=== PATIENT | female | born 1990 | race Caucasian/White ===

== ENCOUNTER 2018-08-01 13:50 | Outpatient (CLI) | payer OTHER ==
[2018-08-01 15:22] VITALS: BP 132/80; PULSE 100; RESP 16; TEMP 97.2
--- NOTE | 2018-08-01 17:26 | P.MSEPDOC ---
Presenting Problems - Arrival Data Date of Arrival on Unit: 08/01/18 Time of Arrival on Unit: 13:50 Mode of Transport: Ambulatory - Complaint OB-Reason for Admission/Chief Complaint: Possible Onset of Labor Comment: Contractions since last evening, q3-4minutes apart since 1300 Medical History - Information : 1 Para: 0 Term: 0 : 0 Abortions: Spontaneous or Elective: 0 Number of Living Children: 0 - Gestational Age Gestational Age by VENANCIO (wks/days): 38 Weeks and 1 Days Review of Systems - Review of Systems Constitutional: No problems Breast: No problems ENT: No problems Cardiovascular: No problems Respiratory: No problems Gastrointestinal: No problems Genitourinary: No problems Musculoskeletal: No problems Neurological: No problems Skin: No problems Vital Signs - Temperature Temperature: 97.2 F Temperature Source: Temporal Artery Scan - Pulse Right Sitting Brachial Pulse Rate: 100 Pulse Assessment Method: Automatic Cuff - Respirations Respiratory Rate: 16 Oxygen Delivery Method: Room Air O2 Sat by Pulse Oximetry: 98 - Blood Pressure Right Arm Sitting Blood Pressure: 132/80 Blood Pressure Mean: 97 Blood Pressure Source: Automatic Cuff Medical Screen Scoring (Pre) - Cervical Exam Dilation: 1-3 cm = 1 Effacement: More than 50% = 2 Membranes: Intact - Uterine Contractions Frequency: > or = 36 weeks =2 Duration: > 40 seconds = 2 Intensity: N/A - Maternal Vital Signs Maternal Temperature: N/A Maternal Blood Pressure: N/A Signs of Preeclampsia: N/A Maternal Respirations: N/A - Maternal Trauma Maternal Trauma: N/A - Assessment Baseline FHR: 135 Heart Rate - NICHD Category: Category I (Normal) = 0 NST: Reactive Position: N/A Station: N/A - Total Score Total Score (Pre): 7 - Level of Risk Level of Risk: Medium (6-9) Physician Notification (Pre) - Physician Notified Physician Notified Date: 08/01/18 Physician Notified Time: 15:05 Spoke With: Dr. Dubon New Order Received: Yes - Notification Comment Comment: Spk c\Dr. Dubon, advsd , 38 10/13, contractions q3-4 minutes apart, 3/-1, no change after 1 hour. NST reactive. States to d/c home with instructions. Disposition - Disposition OB Disposition: Discharge to home, Written follow up instructions reviewed Discharge Date: 08/01/18 Discharge Time: 15:10 I agree with the RN Medical Screening Exam: Yes Risk & Benefit of care provided described in d/c instruction: Yes Diagnosis: FALSE LABOR AT OR AFTER 37 COMPLETED WEEKS OF GESTATION (Patient was evaluated and discharge by Dr. Dubon.)
== END 2018-08-01 15:10 | disposition home or self-care (01) ==
LOC: FBPOP 13:50
PROVIDERS: ATTEND Obstetrics & Gynecology
DX: O47.1 False labor at or after 37 completed weeks of gestation (principal); Z3A.38 38 weeks gestation of pregnancy
CPT/HCPCS: 59025; G0463; 99213

== ENCOUNTER 2018-08-01 21:00 | Inpatient (IN) | payer OTHER ==
[2018-08-01] MEDS ORDERED: LIDOCAINE 0.5% (PF) 5 MG/ML (50 ML SDV) SQ PRN (21:26)
[2018-08-01] MEDS ORDERED: CARBOPROST TROMETHAMINE 250 MCG/ML 1 ML AMP IM PRN (21:26)
[2018-08-01] MEDS ORDERED: TERBUTALINE 1 MG/ML VIAL SQ PRN (21:26)
[2018-08-01] MEDS ORDERED: METHYLERGONOVINE 0.2 MG/ML 1 ML AMP IM PRN (21:26)
[2018-08-01] MEDS ORDERED: OXYTOCIN 10 UNIT/ML 1 ML VIAL IM PRN (21:26)
[2018-08-01] MEDS ORDERED: LACTATED RINGERS 1,000 ML IV SCH (21:30)
[2018-08-01] MEDS ORDERED: OXYTOCIN 20 UNITS/1000 ML NS 1,000 ML IV SCH ×2 (21:30→22:30)
[2018-08-01 22:01] LABS: Basophils % (A) 0 %; Eosinophils # (A) 0.3 k/uL (0-0.7); Eosinophils % (A) 1 %; HCT 36.3 % (34.0-46.0); HGB 12.2 gm/dL (11.4-16.0); Lymphocytes # (A) 2.6 k/uL (1.0-4.8); Lymphocytes % (A) 13 %; MCH 32.3 pg (25.0-35.0); MCHC 33.7 g/dL (31.0-37.0); MCV 95.8 fL (80.0-100.0); Mean Platelet Volume 7.7; Monocytes # (A) 0.8 k/uL (0-1.0); Monocytes % (A) 4 %; Neutrophils # (A) 15.9 k/uL (1.3-7.7); Neutrophils % (A) 81 %; Platelet Count 240 k/uL (150-450); RBC 3.79 m/uL (3.80-5.40); RDW 13.3 % (11.5-15.5); WBC 19.8 k/uL (3.8-10.6)
[2018-08-01] MEDS ORDERED: ACETAMINOPHEN TAB 325 MG TAB PO PRN (22:29)
[2018-08-01] MEDS ORDERED: HYDROCORTISONE 2.5% RECTAL CREAM 30 GM TUBE RECTAL PRN (22:29)
[2018-08-01] MEDS ORDERED: SIMETHICONE 80 MG CHEWABLE PO PRN (22:29)
[2018-08-01] MEDS ORDERED: BISACODYL 10 MG SUPP RECTAL PRN (22:29)
[2018-08-01] MEDS ORDERED: WITCH HAZEL 1 EACH MED..PAD TOPICAL PRN (22:29)
[2018-08-01] MEDS ORDERED: BENZOCAINE/MENTHOL SPRAY 1 GM/SPRAY AEROSOL TOPICAL PRN (22:29)
[2018-08-01] MEDS ORDERED: diphenhydrAMINE 50 MG/ML 1 ML VIAL IVP PRN (22:29)
[2018-08-01] MEDS ORDERED: Rhogam IMMUNE GLOBULIN 1,500 UNIT/1 ML IM ONE (22:29)
[2018-08-01] MEDS ORDERED: ZOLPIDEM 5 MG TAB PO PRN (22:29)
[2018-08-01] MEDS ORDERED: diphenhydrAMINE 25 MG CAP PO PRN (22:29)
[2018-08-01] MEDS ORDERED: LANOLIN CREAM 5 GM TUBE TOPICAL PRN (22:29)
--- NOTE | 2018-08-01 22:36 | P.HPOB ---
History of Present Illness H&P Date: 08/01/18 Chief Complaint: Contractions This patient is a pleasant 28-year-old 1 para 0 female estimated date of confinement 08/14/2018 estimated gestational age 38 weeks and 1 day who was seen in the office earlier today was 3 cm dilated and having contractions returns this evening with stronger contractions and a gush of fluid that happened earlier this evening. Patient's admission is 3 cm dilated and very uncomfortable. care is per Dr. Dubon. appears to be uncomplicated with the exception of tobacco use. Review of Systems Gastrointestinal: Reports heartburn Genitourinary: Reports Menstruation: Reports amenorrhea Past Medical History Past Medical History: No Reported History History of Any Multi-Drug Resistant Organisms: None Reported Past Surgical History: Cholecystectomy Past Anesthesia/Blood Transfusion Reactions: No Reported Reaction Past Psychological History: No Psychological Hx Reported Smoking Status: Former smoker Past Alcohol Use History: None Reported Past Drug Use History: None Reported Medications and Allergies Home Medications Medication Instructions Recorded Confirmed Type Pnv No.95/Ferrous Fum/Folic AC 1 each PO DAILY 08/01/18 08/01/18 History [ Multivitamin Tablet] Allergies Allergy/AdvReac Type Severity Reaction Status Date / Time Penicillins AdvReac Rash/Hives Verified 08/01/18 14:03 Exam Vital Signs Temp Pulse Resp BP 08/01/18 21:20 96.1 F L 85 16 131/78 Intake and Output 08/01/18 08/01/18 08/01/18 06:59 14:59 22:59 Other: Weight 85.275 kg - OBG Physical Exam Abdomen: bowel sounds normal, no diffuse tenderness, no bruit present, no guarding noted, no hepatomegaly, no splenomegaly, no mass Vulva: both: normal Vagina: normal moisture, no discharge Cervix: no lesion, no discharge Uterus: enlarged Adnexa: both: normal Results blood work shows she is Rh-. Patient did receive RhoGAM. Result Diagrams: 08/01/18 21:51 Abnormal Lab Results - Last 24 Hours (Table) 08/01/18 Range/Units 21:51 WBC 19.8 H (3.8-10.6) k/uL RBC 3.79 L (3.80-5.40) m/uL Neutrophils # 15.9 H (1.3-7.7) k/uL Assessment and Plan Assessment: This is a pleasant 28-year-old 1 para 0 female 38 and one sevenths weeks gestation with active labor and spontaneous rupture membranes. Plan is anticipate vaginal delivery. (1) Third trimester Current Visit: Yes Status: Acute Code(s): Z34.93 - ENCNTR FOR SUPRVSN OF NORMAL PREG, UNSP, THIRD TRIMESTER SNOMED Code(s): 47192690 (2) Normal labor and delivery Current Visit: Yes Status: Acute Code(s): O80 - ENCOUNTER FOR FULL-TERM UNCOMPLICATED DELIVERY SNOMED Code(s): 76587893
[2018-08-01 22:39] VITALS: BMI 33.3
--- NOTE | 2018-08-01 22:39 | P.PROBDLV ---
Vaginal Delivery Note - . Vaginal Delivery Note: Normal spontaneous vaginal delivery viable female Apgars 8 and 9 delivery time is 2209 hrs. Please see dictated H&P for intimate details of this patient's admission. Brief summary this pleasant 28-year-old 1 para 0 female 38 and one sevenths weeks gestation admitted to labor and delivery in active labor and spontaneous rupture membranes. Patient is 3 on admission and quickly goes to complete. Patient is unable to get anything for pain control because of this beautiful her labor. Patient does get the head to the perineum with approximately 3 pushes. Posterior perineum is supported and we have controlled delivery of 's head over the intact perineum. Mouth and nares are bulb suctioned. There is no evidence of a nuchal cord. With gentle downward traction we then have deliver the anterior and posterior shoulder and rest of this 's body. This is a vigorous viable female infant Apgars are 8 and 9 delivery time is 2209 hrs. After delivery of the infant the umbilical cord is allowed to continue pulsating and then after done, it is clamped and cut. It appears to be trivascular. Placenta is spontaneously delivered intact. Inspection of perineum shows a first-degree right vaginal laceration. There is bilateral superficial periurethral lacerations. I repair the first-degree laceration with a 3-0 Vicryl in the usual fashion excellent reapproximation is noted. Infant and mother stable delivery room. All counts are correct 3. There are no complications.
[2018-08-01] MEDS: IBUPROFEN 600 MG TAB PO PRN (23:19)
--- NOTE | 2018-08-02 07:12 | P.PNOBGVD ---
Subjective - Subjective Patient reports: Reports appetite normal, Reports voiding normally, Reports pain well controlled, Reports ambulating normally : doing well Objective - Latest Vital Signs Latest vital signs: Vital Signs Temp Pulse Resp BP Pulse Ox 08/02/18 04:00 98 F 71 16 124/76 08/02/18 00:21 77 16 112/57 08/01/18 23:51 85 16 124/64 08/01/18 23:21 80 16 117/61 08/01/18 23:06 71 16 114/61 08/01/18 22:51 78 16 117/57 08/01/18 22:36 82 16 116/61 100 08/01/18 22:21 96.7 F L 84 16 119/59 100 08/01/18 21:25 96.1 F L 85 16 131/78 100 08/01/18 21:20 96.1 F L 85 16 131/78 Intake and Output 08/01/18 08/02/18 08/02/18 22:59 06:59 14:59 Other: # Voids 1 1 Weight 85.275 kg - Exam Lungs: bilateral: normal Chest: Normal S1, Normal S2 Extremities: Present: normal Abdomen: Present: normal appearance, soft Uterus: Present: normal, firm - Labs Labs: Abnormal Lab Results - Last 24 Hours (Table) 08/01/18 Range/Units 21:51 WBC 19.8 H (3.8-10.6) k/uL RBC 3.79 L (3.80-5.40) m/uL Neutrophils # 15.9 H (1.3-7.7) k/uL Assessment and Plan Assessment: day #1. Patient is resting without complaints. Vital signs are stable and she is afebrile. Uterus is firm nontender she's having normal lochia. My impression this is a normal course. Plan is to continue routine care discharge home tomorrow (1) Third trimester Current Visit: Yes Status: Acute Code(s): Z34.93 - ENCNTR FOR SUPRVSN OF NORMAL PREG, UNSP, THIRD TRIMESTER SNOMED Code(s): 53291090 (2) Normal labor and delivery Current Visit: Yes Status: Acute Code(s): O80 - ENCOUNTER FOR FULL-TERM UNCOMPLICATED DELIVERY SNOMED Code(s): 82723809
[2018-08-02] MEDS: SENNOSIDES-DOCUSATE SODIUM 1 EACH TAB PO SCH ×2 (08:00→21:05)
[2018-08-02] MEDS: IBUPROFEN 600 MG TAB PO PRN (17:03)
[2018-08-03 01:22] VITALS: PULSE 69
--- NOTE | 2018-08-03 06:52 | P.PNOBGVD ---
Subjective - Subjective Patient reports: Reports appetite normal, Reports voiding normally, Reports pain well controlled, Reports ambulating normally : doing well Objective - Latest Vital Signs Latest vital signs: Vital Signs Temp Pulse Resp BP 08/03/18 00:00 98.2 F 69 14 123/69 08/02/18 16:00 98.4 F 76 18 126/78 08/02/18 08:00 97.7 F 75 18 124/74 - Exam Lungs: bilateral: normal Chest: Normal S1, Normal S2 Extremities: Present: normal Abdomen: Present: normal appearance, soft Uterus: Present: normal, firm Assessment and Plan Assessment: day #2. Patient is resting without complaints wishes to go home. Vital signs are stable and she is afebrile. Uterus is firm nontender and she is having normal lochia. My impression this is a normal course. Plan is to continue routine care discharge home later today. (1) Third trimester Current Visit: Yes Status: Acute Code(s): Z34.93 - ENCNTR FOR SUPRVSN OF NORMAL PREG, UNSP, THIRD TRIMESTER SNOMED Code(s): 54571417 (2) Normal labor and delivery Current Visit: Yes Status: Acute Code(s): O80 - ENCOUNTER FOR FULL-TERM UNCOMPLICATED DELIVERY SNOMED Code(s): 14824915
--- NOTE | 2018-08-03 06:55 | P.DS ---
Providers Date of admission: 08/01/18 21:22 Expected date of discharge: 08/03/18 Attending physician: Liz Dubon Primary care physician: Liz Dubon - Discharge Diagnosis(es) (1) Third trimester Current Visit: Yes Status: Acute (2) Normal labor and delivery Current Visit: Yes Status: Acute Hospital Course: Please see dictated H&P for intimate details of this patient's admission. Brief summary this pleasant 28-year-old 1 para 0 female admitted to labor and delivery with spontaneous rupture membranes in active labor. Patient quickly was on to have a vaginal delivery viable female . Please see dictated delivery note. day #2 patient's felt be stable for discharge home follow up with Dr. Dubon 6 weeks. Procedures: Normal spontaneous vaginal delivery Patient Condition at Discharge: Good Plan - Discharge Summary New Discharge Prescriptions: New Ibuprofen [Motrin] 600 mg PO Q6HR PRN #40 tab PRN Reason: Mild Pain Or Fever >= 100.5 No Action Pnv No.95/Ferrous Fum/Folic AC [ Multivitamin Tablet] 1 each PO DAILY Discharge Medication List Pnv No.95/Ferrous Fum/Folic AC [ Multivitamin Tablet] 1 each PO DAILY [History] Ibuprofen [Motrin] 600 mg PO Q6HR PRN #40 tab 08/03/18 [Rx] Follow up Appointment(s)/Referral(s): Liz Dubon DO [Primary Care Provider] - 6 Weeks Patient Instructions/Handouts: Vaginal Delivery (DC) Activity/Diet/Wound Care/Special Instructions: No intercourse or anything per vagina for 6 weeks. Please call if any fever, chills, excessive vaginal bleeding, and/or abdominal pain. Discharge Disposition: HOME SELF-CARE
[2018-08-03] MEDS: IBUPROFEN 600 MG TAB PO PRN (08:44)
[2018-08-03] MEDS: SENNOSIDES-DOCUSATE SODIUM 1 EACH TAB PO SCH (08:45)
[2018-08-03 09:05] VITALS: BP 127/71; RESP 18; TEMP 97.6
--- NOTE | 2018-08-05 06:37 | P.MSEPDOC ---
Presenting Problems - Arrival Data Date of Arrival on Unit: 08/01/18 Time of Arrival on Unit: 21:20 Mode of Transport: Wheelchair - Complaint OB-Reason for Admission/Chief Complaint: Rule Out SROM Medical History - Information : 1 Para: 0 Term: 0 : 0 Abortions: Spontaneous or Elective: 0 Number of Living Children: 0 - Gestational Age Gestational Age by VENANCIO (wks/days): 38 Weeks and 1 Days Review of Systems - Review of Systems Constitutional: No problems Breast: No problems ENT: No problems Cardiovascular: No problems Respiratory: No problems Gastrointestinal: No problems Genitourinary: No problems Musculoskeletal: No problems Neurological: No problems Skin: No problems Vital Signs - Temperature Temperature: 97.6 F Temperature Source: Oral - Pulse Right Brachial Pulse Rate: 69 Pulse Assessment Method: Automatic Cuff - Respirations Respiratory Rate: 18 Oxygen Delivery Method: Room Air - Blood Pressure Right Arm Blood Pressure: 127/71 Blood Pressure Mean: 89 Blood Pressure Source: Automatic Cuff Medical Screen Scoring (Pre) - Cervical Exam Dilation: 1-3 cm = 1 Membranes: Ruptured = 3 - Uterine Contractions Frequency: > 5 minutes apart = 1 - Maternal Vital Signs Maternal Temperature: N/A Maternal Blood Pressure: N/A Signs of Preeclampsia: N/A Maternal Respirations: N/A - Pain Assessment Pain Location and Character: Abdomen Pain Scale Used: Numeric (1 - 10) Pain Intensity: 9 Pain Description: *Acute, Cramping Pain Frequency: Intermittent Pain Duration Units: Minutes Pain Behavior: Facial Grimacing, Vocalization Pain Aggravating Factors: Contractions - Assessment Baseline FHR: 125 Heart Rate - NICHD Category: Category I (Normal) = 0 NST: Reactive Position: N/A - Total Score Total Score (Pre): 5 - Level of Risk Level of Risk: Low (0-5) Physician Notification (Pre) - Physician Notified Physician Notified Date: 08/01/18 Physician Notified Time: 21:20 Physician/Practitioner Notifed:: Dr. Mcknight Spoke With: Dr. Mcknight New Order Received: Yes - Notification Comment Comment: Dr. Mcknight given report on pt in triage. ROM at 2030. Positive amnisure. Orders recieved to admit pt to floor. pt may have epidural for pain. To start pit if. contractions irregular Disposition - Disposition OB Disposition: Admit Discharge Date: 08/03/18 Discharge Time: 16:16 I agree with the RN Medical Screening Exam: Yes Risk & Benefit of care provided described in d/c instruction: Yes Diagnosis: ENCOUNTER FOR FULL-TERM UNCOMPLICATED DELIVERY
== END 2018-08-03 16:20 | disposition home or self-care (01) | DRG 807 ==
LOC: FBPOP 21:00 → 4FBP 21:22
PROVIDERS: ADMIT Obstetrics & Gynecology; ATTEND Obstetrics & Gynecology
PROC: 0HQ9XZZ Repair Perineum Skin, External Approach (ICD-10-PCS; principal; 2018-08-01)
PROC: 10E0XZZ Delivery of Products of Conception, External Approach (ICD-10-PCS; principal; 2018-08-01)
DX: O70.0 First degree perineal laceration during delivery (principal); Z37.0 Single live birth; Z3A.38 38 weeks gestation of pregnancy; O99.334 Smoking (tobacco) complicating childbirth; F17.200 Nicotine dependence, unspecified, uncomplicated; Z88.0 Allergy status to penicillin
CPT/HCPCS: 59025; 85025; 86850; 86870; 86880; 86900; 86901; 86902; 99213

== ENCOUNTER → 2019-01-06 | Outpatient (CLI) | payer OTHER ==
--- NOTE | 2019-01-06 16:10 | US ---
EXAMINATION TYPE: US pelvis complete transvag DATE OF EXAM: 01/06/2019 COMPARISON: NONE CLINICAL HISTORY: N92.1 BREAKTHROUGH BLEEDING ON OCPS. TECHNIQUE: Transvaginal (TV) and Transabdominal (TA) . Transabdominal sonographic images of the pel vis were acquired. Transvaginal sonographic images were medically necessary to better assess the fol lowing anatomy: left ovary Date of LMP: 12/31/18 EXAM MEASUREMENTS: Uterus: 8.1 x 3.9 x 3.6 cm Endometrial Stripe: 0.5 cm Right Ovary: 2.8 x 2.7 x 2.6 cm Left Ovary: 2.4 x 2.0 x 2.0 cm 1. Uterus: Retroverted wnl 2. Endometrium: wnl 3. Right Ovary: dominant follicle measuring 2.2 x 1.9 x 1.9cm 4. Left Ovary: wnl 5. Bilateral Adnexa: wnl 6. Posterior cul-de-sac: wnl IMPRESSION: 1. There is a 2.2 cm right ovarian simple cyst.
== END | disposition home or self-care (01) ==
LOC: RADUSWWP 15:24
PROVIDERS: ATTEND Obstetrics & Gynecology
DX: N83.291 Other ovarian cyst, right side (principal)
CPT/HCPCS: 76830; 76856

== ENCOUNTER → 2019-02-23 | Outpatient (CLI) | payer OTHER | END | disposition home or self-care (01) | LOC: LABWHC1 10:01 | PROVIDERS: ATTEND Obstetrics & Gynecology | DX: O20.0 Threatened abortion (principal); Z3A.00 Weeks of gestation of pregnancy not specified | CPT/HCPCS: 36415; 84702; 86850; 86900; 86901 ==

== ENCOUNTER → 2019-02-25 | Outpatient (CLI) | payer OTHER | LOC: LABWHC1 11:07 | PROVIDERS: ATTEND Obstetrics & Gynecology | DX: O03.9 Complete or unspecified spontaneous abortion without complication (principal) | CPT/HCPCS: 36415; 84702 ==

== ENCOUNTER 2019-11-17 15:58 | Emergency (ER) | payer OTHER ==
[2019-11-17 17:06] LABS: Basophils # (A) 0.1 k/uL (0-0.2); Basophils % (A) 1 %; Eosinophils # (A) 0.2 k/uL (0-0.7); Eosinophils % (A) 1 %; HCT 43.6 % (34.0-46.0); HGB 14.4 gm/dL (11.4-16.0); Lymphocytes # (A) 2.5 k/uL (1.0-4.8); Lymphocytes % (A) 22 %; MCH 29.4 pg (25.0-35.0); MCHC 33.1 g/dL (31.0-37.0); MCV 88.8 fL (80.0-100.0); Mean Platelet Volume 7.5; Monocytes # (A) 0.5 k/uL (0-1.0); Monocytes % (A) 4 %; Neutrophils # (A) 7.8 k/uL (1.3-7.7); Neutrophils % (A) 70 %; Platelet Count 236 k/uL (150-450); RBC 4.91 m/uL (3.80-5.40); RDW 13.1 % (11.5-15.5); WBC 11.2 k/uL (3.8-10.6)
[2019-11-17 17:16] LABS: ALT 17 U/L (4-34); AST 25 U/L (14-36); African American GFR (CKD) >90 (>60 ml/min/1.73 sqM); Albumin 4.2 g/dL (3.5-5.0); Alkaline Phosphatase 69 U/L (38-126); Anion Gap 8 mmol/L; Blood Urea Nitrogen 11 mg/dL (7-17); Calcium 9.2 mg/dL (8.4-10.2); Carbon Dioxide 24 mmol/L (22-30); Chloride 106 mmol/L (98-107); Glucose 89 mg/dL (74-99); Non-African American GFR(CKD) >90 (>60 ml/min/1.73 sqM); Potassium 4.2 mmol/L (3.5-5.1); Sodium 138 mmol/L (137-145); Total Bilirubin 0.4 mg/dL (0.2-1.3)
[2019-11-17 17:27] LABS: Appearance,Urine Clear (Clear); Bilirubin,Urine Negative (Negative); Blood,Urine Negative (Negative); Color,Urine Yellow; Glucose,Urine (UA) Negative (Negative); Ketones,Urine Negative (Negative); Leukocyte Esterase,Urine Small (Negative); Mucus,Urine Few /hpf; Nitrite,Urine Negative (Negative); Protein,Urine Negative (Negative); RBC,Urine 1 /hpf (0-5); Specific Gravity,Urine 1.022 (1.001-1.035); Squamous Epithelial Cell,Urine 5 /hpf (0-4); Urobilinogen,Urine <2.0 mg/dL (<2.0); WBC,Urine 1 /hpf (0-5)
--- NOTE | 2019-11-17 17:31 | XR ---
EXAMINATION TYPE: XR KUB DATE OF EXAM: 11/17/2019 COMPARISON: 06/20/2009 HISTORY: Right-sided pain TECHNIQUE: 2 views Upright FINDINGS: Bowel gas pattern is normal. There is no sign of intestinal obstruction or pneumoperitoneum . Fecal pattern is normal. There are clips from cholecystectomy. Lung bases are clear. IMPRESSION: Nonacute abdomen. No adverse change.
[2019-11-17] MEDS ORDERED: ONDANSETRON 4 MG/2 ML VIAL IVP STA (18:13)
[2019-11-17] MEDS ORDERED: KETOROLAC 30 MG/ML 1 ML VIAL IVP STA (18:13)
[2019-11-17] MEDS ORDERED: SODIUM CHLORIDE 0.9% 500 ML 500 ML IV STA (18:19)
--- NOTE | 2019-11-17 18:19 | ED ---
Abdominal Pain HPI - General Chief Complaint: Abdominal Pain Stated Complaint: Rt side pain Time Seen by Provider: 11/17/19 18:04 Source: patient Mode of arrival: ambulatory Limitations: no limitations - History of Present Illness Initial Comments: Patient is a 29-year-old female presenting to emergency Department with complaints of right sided pain that started last night. Patient states the pain started more on the lateral aspect of the right side of the abdomen and has now involving the entire right side. She has history of cholecystectomy, no other abdominal surgeries. She states she has felt nauseous, no fevers. She denies vomiting. She does admit to one episode of diarrhea. She states she had increased pain when she tried to pick pulling machine tender her 1-year-old today She denies chest pain, shortness of breath, recent illnesses. She states she had a menstrual cycle 2 weeks ago, small chance for . She does not take control. She has no other complaints at this time. Upon arrival to the ER her vitals are stable. - Related Data Home Medications Medication Instructions Recorded Confirmed Pnv No.95/Ferrous Fum/Folic AC 1 each PO DAILY 08/01/18 08/01/18 [ Multivitamin Tablet] Previous Rx's Medication Instructions Recorded Ibuprofen [Motrin] 600 mg PO Q6HR PRN #40 tab 08/03/18 Allergies Allergy/AdvReac Type Severity Reaction Status Date / Time Penicillins AdvReac Rash/Hives Verified 08/01/18 14:03 Review of Systems ROS Statement: Those systems with pertinent positive or pertinent negative responses have been documented in the HPI. ROS Other: All systems not noted in ROS Statement are negative. Past Medical History Past Medical History: No Reported History History of Any Multi-Drug Resistant Organisms: None Reported Past Surgical History: Cholecystectomy Past Anesthesia/Blood Transfusion Reactions: No Reported Reaction Past Psychological History: No Psychological Hx Reported Smoking Status: Former smoker Past Alcohol Use History: None Reported Past Drug Use History: None Reported - Past Family History Father Family Medical History: Diabetes Mellitus General Exam - General Exam Comments Initial Comments: GENERAL: Well-appearing, well-nourished and in no acute distress. HEAD: Atraumatic, normocephalic. EYES: Pupils equal round and reactive to light, extraocular movements intact, sclera anicteric, conjunctiva are normal. ENT: TMs normal, nares patent, oropharynx clear without exudates. Moist mucous membranes. NECK: Normal range of motion, supple without lymphadenopathy or JVD. LUNGS: Breath sounds clear to auscultation bilaterally and equal. No wheezes rales or rhonchi. HEART: Regular rate and rhythm without murmurs, rubs or gallops. ABDOMEN: Tenderness to right side of the abdomen, right lower quadrant. Soft, normoacti ve bowel sounds. No guarding, no rebound. No masses appreciated. : Deferred EXTREMITIES: Normal range of motion, no pitting or edema. No clubbing or cyanosis. NEUROLOGICAL: Normal speech, normal gait. PSYCH: Normal mood, normal affect. SKIN: Warm, Dry, normal turgor, no rashes or lesions noted. Limitations: no limitations Course Vital Signs 11/17/19 16:08 Temperature 98.1 F Pulse Rate 72 Respiratory 21 Rate Blood Pressure 114/72 O2 Sat by Pulse 98 Oximetry Medical Decision Making - Medical Decision Making Patient is a 29-year-old female presenting with right-sided abdominal pain for 2 days. Nausea, when upset diarrhea as well. No fevers. She has history: Vasectomy. Lab work shows very slight looks cytosis 11.8 otherwise unremarkable. Urine shows no signs of infection, not . Computed tomography scan shows no acute abnormalities. Discussed these findings with the patient. This is most likely gastroenteritis related. Patient will continue with Motrin as needed for discomfort and will follow-up with PCP if symptoms persist. She is in agreement this plan of care. We discussed doing a vaginal exam poor patient declined at this time. Return parameters were discussed with the patient she verbalized understanding. Case is discussed with Dr. Delgado. - Lab Data Result diagrams: 11/17/19 17:00 11/17/19 17:00 Lab Results 11/17/19 11/17/19 11/17/19 Range/Units 17:00 17:00 17:00 WBC 11.2 H (3.8-10.6) k/uL RBC 4.91 (3.80-5.40) m/uL Hgb 14.4 (11.4-16.0) gm/dL Hct 43.6 (34.0-46.0) % MCV 88.8 (80.0-100.0) fL MCH 29.4 (25.0-35.0) pg MCHC 33.1 (31.0-37.0) g/dL RDW 13.1 (11.5-15.5) % Plt Count 236 (150-450) k/uL Neutrophils % 70 % Lymphocytes % 22 % Monocytes % 4 % Eosinophils % 1 % Basophils % 1 % Neutrophils # 7.8 H (1.3-7.7) k/uL Lymphocytes # 2.5 (1.0-4.8) k/uL Monocytes # 0.5 (0-1.0) k/uL Eosinophils # 0.2 (0-0.7) k/uL Basophils # 0.1 (0-0.2) k/uL Sodium 138 (137-145) mmol/L Potassium 4.2 (3.5-5.1) mmol/L Chloride 106 (98-107) mmol/L Carbon Dioxide 24 (22-30) mmol/L Anion Gap 8 mmol/L BUN 11 (7-17) mg/dL Creatinine 0.69 (0.52-1.04) mg/dL Est GFR (CKD-EPI)AfAm >90 (>60 ml/min/1.73 sqM) Est GFR (CKD-EPI)NonAf >90 (>60 ml/min/1.73 sqM) Glucose 89 (74-99) mg/dL Calcium 9.2 (8.4-10.2) mg/dL Total Bilirubin 0.4 (0.2-1.3) mg/dL AST 25 (14-36) U/L ALT 17 (4-34) U/L Alkaline Phosphatase 69 (38-126) U/L Total Protein 7.0 (6.3-8.2) g/dL Albumin 4.2 (3.5-5.0) g/dL Urine Color Yellow Urine Appearance Clear (Clear) Urine pH 6.0 (5.0-8.0) Ur Specific [place] 1.022 (1.001-1.035) Urine Protein Negative (Negative) Urine Glucose (UA) Negative (Negative) Urine Ketones Negative (Negative) Urine Blood Negative (Negative) Urine Nitrite Negative (Negative) Urine Bilirubin Negative (Negative) Urine Urobilinogen <2.0 (<2.0) mg/dL Ur Leukocyte Esterase Small H (Negative) Urine RBC 1 (0-5) /hpf Urine WBC 1 (0-5) /hpf Ur Squamous Epith Cells 5 H (0-4) /hpf Urine Mucus Few H (None) /hpf Urine HCG, Qual (Not Detectd) 11/17/19 Range/Units 17:00 WBC (3.8-10.6) k/uL RBC (3.80-5.40) m/uL Hgb (11.4-16.0) gm/dL Hct (34.0-46.0) % MCV (80.0-100.0) fL MCH (25.0-35.0) pg MCHC (31.0-37.0) g/dL RDW (11.5-15.5) % Plt Count (150-450) k/uL Neutrophils % % Lymphocytes % % Monocytes % % Eosinophils % % Basophils % % Neutrophils # (1.3-7.7) k/uL Lymphocytes # (1.0-4.8) k/uL Monocytes # (0-1.0) k/uL Eosinophils # (0-0.7) k/uL Basophils # (0-0.2) k/uL Sodium (137-145) mmol/L Potassium (3.5-5.1) mmol/L Chloride (98-107) mmol/L Carbon Dioxide (22-30) mmol/L Anion Gap mmol/L BUN (7-17) mg/dL Creatinine (0.52-1.04) mg/dL Est GFR (CKD-EPI)AfAm (>60 ml/min/1.73 sqM) Est GFR (CKD-EPI)NonAf (>60 ml/min/1.73 sqM) Glucose (74-99) mg/dL Calcium (8.4-10.2) mg/dL Total Bilirubin (0.2-1.3) mg/dL AST (14-36) U/L ALT (4-34) U/L Alkaline Phosphatase (38-126) U/L Total Protein (6.3-8.2) g/dL Albumin (3.5-5.0) g/dL Urine Color Urine Appearance (Clear) Urine pH (5.0-8.0) Ur Specific [place] (1.001-1.035) Urine Protein (Negative) Urine Glucose (UA) (Negative) Urine Ketones (Negative) Urine Blood (Negative) Urine Nitrite (Negative) Urine Bilirubin (Negative) Urine Urobilinogen (<2.0) mg/dL Ur Leukocyte Esterase (Negative) Urine RBC (0-5) /hpf Urine WBC (0-5) /hpf Ur Squamous Epith Cells (0-4) /hpf Urine Mucus (None) /hpf Urine HCG, Qual Not Detected (Not Detectd) Disposition Clinical Impression: Abdominal pain, Diarrhea, Gastroenteritis Disposition: HOME SELF-CARE Condition: Stable Instructions (If sedation given, give patient instructions): Abdominal Pain (ED) Additional Instructions: Please return to the Emergency Department if symptoms worsen or any other concerns. Take ibuprofen as needed for discomfort. Follow-up with PCP. Is patient prescribed a controlled substance at d/c from ED?: No Referrals: None,Stated [Primary Care Provider] - 1-2 days
--- NOTE | 2019-11-17 19:11 | CT ---
EXAMINATION TYPE: CT abdomen pelvis w con DATE OF EXAM: 11/17/2019 COMPARISON: None HISTORY: RLQ pain with nausea. CT DLP: 1448 mGycm Automated exposure control for dose reduction was used. CONTRAST: Performed with IV Contrast, patient injected with 100 mL of Isovue 300. Multiple axial sections were obtained from the diaphragm to the floor the pelvis with intravenous con trast. Lung bases are clear. There is no pleural effusion. Heart size is normal. Liver spleen stomach pancreas appear normal. There are clips from cholecystectomy. Bile ducts are not dilated. There is no adrenal mass. Kidneys show satisfactory contrast opacification. There is no hydronephrosi s. Ureters are not dilated. Delayed images show normal renal excretion. There is no retroperitoneal a denopathy. Bladder distends smoothly. There is no free fluid in the pelvis. There is no inguinal anabella ia. Lumbar vertebra have normal spacing and alignment. Posterior elements are intact. There is no cameron naomy fracture. Uterus is retroverted. There is no evidence of a pelvic mass. Appendix is posterior an d appears normal. There is no mesenteric edema. There is no ascites or free air. There is no sign of a bowel obstructio n. Terminal ileum appears normal. IMPRESSION: Negative CT scan abdomen and pelvis. Normal appendix.
[2019-11-17 19:57] VITALS: BP 116/63; PULSE 59; RESP 18; TEMP 98
== END 2019-11-17 19:57 | disposition home or self-care (01) ==
LOC: EC 15:58
DX: K52.9 Noninfective gastroenteritis and colitis, unspecified (principal); Z32.02 Encounter for pregnancy test, result negative; Z87.891 Personal history of nicotine dependence; Z88.0 Allergy status to penicillin; Z90.49 Acquired absence of other specified parts of digestive tract
CPT/HCPCS: 36415; 80053; 85025; 81001; 81025; 74018; 74177; 99284; 96374; 96375; 96361; J2405; J1885; Q9967

== ENCOUNTER 2020-04-23 16:25 | Emergency (ER) | payer OTHER ==
[2020-04-23 16:30] VITALS: TEMP 97.8
[2020-04-23] MEDS ORDERED: diphenhydrAMINE 50 MG/ML 1 ML VIAL IVP STA (16:49)
[2020-04-23] MEDS ORDERED: SODIUM CHLORIDE 0.9% 1,000 ML IV STA ×2 (16:49→18:21)
[2020-04-23] MEDS ORDERED: METOCLOPRAMIDE 5 MG/ML 2 ML VIAL IVP STA (16:49)
--- NOTE | 2020-04-23 16:56 | ED ---
Nausea/Vomiting/Diarrhea HPI - General Chief complaint: Nausea/Vomiting/Diarrhea Stated complaint: can't keep anything down Time Seen by Provider: 04/23/20 16:34 Source: patient Mode of arrival: ambulatory Limitations: no limitations - History of Present Illness Initial comments: She is a 29-year-old female, presenting to the emergency department for a chief complaint of nausea vomiting and . Patient states yesterday she found out she was with a home test. Patient states ever since then she continued to have nausea with multiple episodes of nonbilious, nonbloody vomiting. Patient states she's not been able to keep any liquids or solids down. Patient does report some epigastric abdominal discomfort was states that is due to the repeated vomiting. Patient denies any vaginal or urinary symptoms. She denies any concerns for STDs. Denies any vaginal bleeding. Denies any night sweats or chills. Denies any back pain. - Related Data Home Medications Medication Instructions Recorded Confirmed Pnv No.95/Ferrous Fum/Folic AC 1 each PO DAILY 08/01/18 08/01/18 [ Multivitamin Tablet] Previous Rx's Medication Instructions Recorded Ibuprofen [Motrin] 600 mg PO Q6HR PRN #40 tab 08/03/18 Metoclopramide [Reglan] 10 mg PO TID PRN #15 tab 04/23/20 Vpg-Zydk-Evbew Acid 1 each PO DAILY #30 cap 04/23/20 [-U Capsule] Allergies Allergy/AdvReac Type Severity Reaction Status Date / Time Penicillins AdvReac Rash/Hives Verified 04/23/20 16:30 Review of Systems ROS Statement: Those systems with pertinent positive or pertinent negative responses have been documented in the HPI. ROS Other: All systems not noted in ROS Statement are negative. Past Medical History Past Medical History: No Reported History History of Any Multi-Drug Resistant Organisms: None Reported Past Surgical History: Cholecystectomy Past Anesthesia/Blood Transfusion Reactions: No Reported Reaction Past Psychological History: No Psychological Hx Reported Smoking Status: Never smoker Past Alcohol Use History: None Reported Past Drug Use History: None Reported - Past Family History Father Family Medical History: Diabetes Mellitus General Exam Limitations: no limitations General appearance: alert, in no apparent distress Head exam: Present: atraumatic, normocephalic, normal inspection Eye exam: Present: normal appearance, PERRL, EOMI Pupils: Present: normal accommodation ENT exam: Present: normal exam, normal oropharynx, mucous membranes dry, TM's normal bilaterally, normal external ear exam Neck exam: Present: normal inspection, full ROM. Absent: tenderness Respiratory exam: Present: normal lung sounds bilaterally. Absent: respiratory distress, wheezes, rales Cardiovascular Exam: Present: regular rate, normal rhythm, normal heart sounds GI/Abdominal exam: Present: soft, tenderness (Epigastric, mild.). Absent: distended, guarding, rebound, rigid Extremities exam: Present: normal inspection, full ROM, normal capillary refill. Absent: tenderness Back exam: Present: normal inspection, full ROM. Absent: tenderness, CVA tenderness (R), CVA tenderness (L) Neurological exam: Present: alert, oriented X3, normal gait Psychiatric exam: Present: normal affect, normal mood Skin exam: Present: warm, dry, intact, normal color Course Vital Signs 04/23/20 04/23/20 16:27 18:34 Temperature 97.8 F Pulse Rate 60 61 Respiratory 18 16 Rate Blood Pressure 122/59 104/84 O2 Sat by Pulse 98 100 Oximetry Medical Decision Making - Medical Decision Making Patient is a 29-year-old female, presenting to the emergency department with a chief complaint of nausea or vomiting. On exam patient has epigastric pain, mild. No vaginal discharge or bleeding. UA reveals +2 ketones but no signs of urinary tract infection or bacteriuria. Patient was given 2 L of fluids. She was also given antiemetics. Reevaluation patient reports improvement in her symptoms. Ultrasound is not able to detect an intrauterine at this time which could be because it is too early. HCG Quant is 338. Patient has leukocytosis of 16k which I suspect is secondary to the vomiting. Patient advised to establish care with an OB. Patient will be discharged with Reglan and vitamins. Patient was offered pelvic examination, she declined. Return parameters were thoroughly discussed the patient is understanding and agreeable. Case discussed with physician. - Lab Data Result diagrams: 04/23/20 17:15 04/23/20 17:15 Lab Results 04/23/20 04/23/20 04/23/20 Range/Units 17:15 17:15 17:15 WBC 16.1 H (3.8-10.6) k/uL RBC 5.14 (3.80-5.40) m/uL Hgb 15.2 (11.4-16.0) gm/dL Hct 46.4 H (34.0-46.0) % MCV 90.2 (80.0-100.0) fL MCH 29.6 (25.0-35.0) pg MCHC 32.8 (31.0-37.0) g/dL RDW 13.1 (11.5-15.5) % Plt Count 257 (150-450) k/uL Neutrophils % 93 % Lymphocytes % 5 % Monocytes % 1 % Eosinophils % 1 % Basophils % 0 % Neutrophils # 14.9 H (1.3-7.7) k/uL Lymphocytes # 0.8 L (1.0-4.8) k/uL Monocytes # 0.2 (0-1.0) k/uL Eosinophils # 0.1 (0-0.7) k/uL Basophils # 0.0 (0-0.2) k/uL Sodium 140 (137-145) mmol/L Potassium 4.3 (3.5-5.1) mmol/L Chloride 108 H (98-107) mmol/L Carbon Dioxide 17 L (22-30) mmol/L Anion Gap 15 mmol/L BUN 10 (7-17) mg/dL Creatinine 0.64 (0.52-1.04) mg/dL Est GFR (CKD-EPI)AfAm >90 (>60 ml/min/1.73 sqM) Est GFR (CKD-EPI)NonAf >90 (>60 ml/min/1.73 sqM) Glucose 105 H (74-99) mg/dL Calcium 9.8 (8.4-10.2) mg/dL Total Bilirubin 0.7 (0.2-1.3) mg/dL AST 23 (14-36) U/L ALT 14 (4-34) U/L Alkaline Phosphatase 79 (38-126) U/L Total Protein 8.0 (6.3-8.2) g/dL Albumin 4.9 (3.5-5.0) g/dL HCG, Quant 334.4 mIU/mL Urine Color Yellow Urine Appearance Cloudy H (Clear) Urine pH 6.0 (5.0-8.0) Ur Specific [place] 1.040 H (1.001-1.035) Urine Protein 2+ H (Negative) Urine Glucose (UA) Negative (Negative) Urine Ketones 4+ H (Negative) Urine Blood Negative (Negative) Urine Nitrite Negative (Negative) Urine Bilirubin Negative (Negative) Urine Urobilinogen 2.0 (<2.0) mg/dL Ur Leukocyte Esterase Negative (Negative) Urine RBC 2 (0-5) /hpf Urine WBC 3 (0-5) /hpf Ur Squamous Epith Cells 11 H (0-4) /hpf Urine Mucus Many H (None) /hpf Disposition Clinical Impression: Nausea & vomiting Disposition: HOME SELF-CARE Condition: Stable Instructions (If sedation given, give patient instructions): Acute Nausea and Vomiting (ED) Additional Instructions: Follow-up with your OB. Take prescribed medication as directed. Return to emergency department if symptoms worsen. Prescriptions: Jaq-Umkc-Tadqq Acid [-U Capsule] 1 each PO DAILY #30 cap Metoclopramide [Reglan] 10 mg PO TID PRN #15 tab PRN Reason: GERD Is patient prescribed a controlled substance at d/c from ED?: No Referrals: None,Stated [Primary Care Provider] - 1-2 days Time of Disposition: 19:12
[2020-04-23 17:37] LABS: Basophils % (A) 0 %; Eosinophils # (A) 0.1 k/uL (0-0.7); Eosinophils % (A) 1 %; HCT 46.4 % (34.0-46.0); HGB 15.2 gm/dL (11.4-16.0); Lymphocytes # (A) 0.8 k/uL (1.0-4.8); Lymphocytes % (A) 5 %; MCH 29.6 pg (25.0-35.0); MCHC 32.8 g/dL (31.0-37.0); MCV 90.2 fL (80.0-100.0); Mean Platelet Volume 8.3; Monocytes # (A) 0.2 k/uL (0-1.0); Monocytes % (A) 1 %; Neutrophils # (A) 14.9 k/uL (1.3-7.7); Neutrophils % (A) 93 %; Platelet Count 257 k/uL (150-450); RBC 5.14 m/uL (3.80-5.40); RDW 13.1 % (11.5-15.5); WBC 16.1 k/uL (3.8-10.6)
[2020-04-23 17:42] LABS: Appearance,Urine Cloudy (Clear); Bilirubin,Urine Negative (Negative); Blood,Urine Negative (Negative); Color,Urine Yellow; Glucose,Urine (UA) Negative (Negative); Ketones,Urine 4+ (Negative); Leukocyte Esterase,Urine Negative (Negative); Mucus,Urine Many /hpf; Nitrite,Urine Negative (Negative); Protein,Urine 2+ (Negative); RBC,Urine 2 /hpf (0-5); Squamous Epithelial Cell,Urine 11 /hpf (0-4); WBC,Urine 3 /hpf (0-5)
[2020-04-23 17:48] LABS: ALT 14 U/L (4-34); AST 23 U/L (14-36); African American GFR (CKD) >90 (>60 ml/min/1.73 sqM); Albumin 4.9 g/dL (3.5-5.0); Alkaline Phosphatase 79 U/L (38-126); Anion Gap 15 mmol/L; Blood Urea Nitrogen 10 mg/dL (7-17); Calcium 9.8 mg/dL (8.4-10.2); Carbon Dioxide 17 mmol/L (22-30); Chloride 108 mmol/L (98-107); Glucose 105 mg/dL (74-99); Non-African American GFR(CKD) >90 (>60 ml/min/1.73 sqM); Potassium 4.3 mmol/L (3.5-5.1); Sodium 140 mmol/L (137-145); Total Bilirubin 0.7 mg/dL (0.2-1.3)
[2020-04-23 18:04] LABS: HCG,Quantitative Serum 334.4 mIU/mL
--- NOTE | 2020-04-23 18:30 | US ---
EXAMINATION TYPE: Ultrasound OB <= 14 week fetus DATE OF EXAM: 04/23/2020 6:20 PM COMPARISON: NONE CLINICAL HISTORY: 29-year-old female nausea and vomiting since yesterday, positive home te st yesterday EXAM PERFORMED: Transabdominal (TA) FINDINGS: EXAM MEASUREMENTS: GESTATIONAL AGE / DATING Physician Established: Not yet established Dates by LMP: (4 weeks/2 days) EDC: 12/30/19 Dates by First Scan: No previous this is first scan Dates by Current Scan for: No IUP seen at this time MATERNAL ANATOMY Uterus: 8.2 x 4.1 x 4.3cm Right Ovary: 2.4 x 2.0 x 2.2cm Left Ovary: 1.7 x 1.5 x 1.6cm Post CDS / Adnexa: wnl Presence of free fluid: no GESTATION / SURVEY IUP: No IUP seen at this time Date of LMP: 03/24/20 Beta HcG (if available): 334 IMPRESSION: 1. No visualized intrauterine . 2. Note that the beta-hCG value is below the threshold for visualization of an intrauterine . 3. Differential considerations include an early, too small to visualize , failed , and nonvisualized ectopic . Correlate with serial beta hCG and ultrasound follow-up to ensur e the appearance of a normal pole with cardiac activity.
[2020-04-23 18:35] VITALS: BP 104/84; PULSE 61; RESP 16
== END 2020-04-23 20:15 | disposition home or self-care (01) ==
LOC: EC 16:25
DX: R11.2 Nausea with vomiting, unspecified (principal); R10.13 Epigastric pain; R82.4 Acetonuria; D72.829 Elevated white blood cell count, unspecified; Z88.0 Allergy status to penicillin; Z79.899 Other long term (current) drug therapy; Z90.49 Acquired absence of other specified parts of digestive tract
CPT/HCPCS: 99284; 96374; 96375; 96361 ×3; 36415; 80053; 85025; 81001; 84702; 76801; J1200; J2765

== ENCOUNTER 2020-04-25 11:38 | Emergency (ER) | payer OTHER ==
[2020-04-25 11:50] VITALS: RESP 18; TEMP 98.4
[2020-04-25] MEDS ORDERED: SODIUM CHLORIDE 0.9% 1,000 ML IV STA (12:04)
[2020-04-25] MEDS ORDERED: METOCLOPRAMIDE 5 MG/ML 2 ML VIAL IVP STA (12:04)
[2020-04-25 12:28] LABS: Basophils % (A) 0 %; Eosinophils # (A) 0.1 k/uL (0-0.7); Eosinophils % (A) 1 %; HCT 44.7 % (34.0-46.0); HGB 14.5 gm/dL (11.4-16.0); Lymphocytes # (A) 1.5 k/uL (1.0-4.8); Lymphocytes % (A) 10 %; MCH 29.5 pg (25.0-35.0); MCHC 32.5 g/dL (31.0-37.0); MCV 90.8 fL (80.0-100.0); Mean Platelet Volume 8.2; Monocytes # (A) 0.4 k/uL (0-1.0); Monocytes % (A) 3 %; Neutrophils # (A) 13.4 k/uL (1.3-7.7); Neutrophils % (A) 86 %; Platelet Count 261 k/uL (150-450); RBC 4.92 m/uL (3.80-5.40); RDW 13.1 % (11.5-15.5); WBC 15.6 k/uL (3.8-10.6)
--- NOTE | 2020-04-25 12:28 | ED ---
Nausea/Vomiting/Diarrhea HPI - General Chief complaint: Nausea/Vomiting/Diarrhea Stated complaint: Vomiting, nausea Time Seen by Provider: 04/25/20 11:52 Source: patient Mode of arrival: ambulatory Limitations: no limitations - History of Present Illness Initial comments: Patient is a 29-year-old female presenting to the emergency Department with complaints of nausea, vomiting for the past 3 days. Patient was seen in the ER 2 days ago for same complaint. Patient states she is currently proximally 4 weeks . They did do no ultrasound during her last visit which did not yet reveal a IUP. Her beta hCG was 334. Patient is . She denies any vaginal bleeding. She is having some upper abdominal cramping, no lower abdominal pain. She states she tried to take the Reglan that she was prescribed but after she takes it she immediately vomits it back up. She denies any fever or chills. She denies any urinary complaints. She has no further complaints at this time. Upon arrival to the ER her vitals are stable. - Related Data Home Medications Medication Instructions Recorded Confirmed Pnv No.95/Ferrous Fum/Folic AC 1 tab PO DAILY 08/01/18 04/25/20 [ Multivitamin Tablet] Previous Rx's Medication Instructions Recorded Cephalexin [Keflex] 500 mg PO BID 3 Days #6 cap 04/25/20 Allergies Allergy/AdvReac Type Severity Reaction Status Date / Time Penicillins AdvReac Rash/Hives Verified 04/25/20 13:01 Review of Systems ROS Statement: Those systems with pertinent positive or pertinent negative responses have been documented in the HPI. ROS Other: All systems not noted in ROS Statement are negative. Past Medical History Past Medical History: No Reported History History of Any Multi-Drug Resistant Organisms: None Reported Past Surgical History: Adenoidectomy, Cholecystectomy Past Anesthesia/Blood Transfusion Reactions: No Reported Reaction Past Psychological History: No Psychological Hx Reported Smoking Status: Never smoker Past Alcohol Use History: None Reported Past Drug Use History: None Reported - Past Family History Father Family Medical History: Diabetes Mellitus General Exam - General Exam Comments Initial Comments: GENERAL: Patient is well-developed and well-nourished. Patient is nontoxic and in no acute distress. HEAD: Atraumatic, normocephalic. EYES: Pupils equal round and reactive to light, extraocular movements intact, sclera anicteric, conjunctiva are normal. Eyelids were unremarkable. ENT: TMs normal, nares patent, oropharynx clear without exudates. Moist mucous membranes. NECK: Normal range of motion, supple without lymphadenopathy or JVD. LUNGS: Unlabored respirations. Breath sounds clear to auscultation bilaterally and equal. No wheezes rales or rhonchi. HEART: Regular rate and rhythm without murmurs, rubs or gallops. ABDOMEN: Soft, nontender, normoactive bowel sounds. No guarding, no rebound. No masses appreciated. : Deferred MUSCULOSKELETAL: Normal extremities with adequate strength and normal range of motion, no pitting or edema. No clubbing or cyanosis. NEUROLOGICAL: Patient is alert and oriented x 3. Motor and sensory are also intact. Normal speech, normal gait. Symmetrical smile. PSYCH: Normal mood, normal affect. SKIN: Warm, Dry, normal turgor, no rashes or lesions noted. Limitations: no limitations Course Vital Signs 04/25/20 11:47 Temperature 98.4 F Pulse Rate 56 L Respiratory 18 Rate Blood Pressure 108/61 O2 Sat by Pulse 99 Oximetry Medical Decision Making - Medical Decision Making Patient is a 21-year-old female here, currently 4 weeks , presenting with nausea and vomiting 3 days. . Follows with Dr. Dubon. Her vitals are stable. No vaginal bleeding, no lower abdominal tenderness. Lab work has improved from 2 days ago, and hCG Quant has doubled in 2 days. Patient was given fluids, Reglan. She reports improvement in her symptoms. Patient's urine did show a moderate amount of WBCs, urine culture is pending. I will start patient on Keflex for asymptomatic bacteremia. Patient is in agreement with this plan of care. She will follow-up with her [employer], Dr. Dubon. Return parameters were discussed with the patient she verbalized understanding. She is stable for discharge. Case discussed with Dr. Macias. - Lab Data Result diagrams: 04/25/20 12:15 04/25/20 12:15 Lab Results 04/25/20 04/25/20 04/25/20 Range/Units 12:15 12:15 12:53 WBC 15.6 H (3.8-10.6) k/uL RBC 4.92 (3.80-5.40) m/uL Hgb 14.5 (11.4-16.0) gm/dL Hct 44.7 (34.0-46.0) % MCV 90.8 (80.0-100.0) fL MCH 29.5 (25.0-35.0) pg MCHC 32.5 (31.0-37.0) g/dL RDW 13.1 (11.5-15.5) % Plt Count 261 (150-450) k/uL Neutrophils % 86 % Lymphocytes % 10 % Monocytes % 3 % Eosinophils % 1 % Basophils % 0 % Neutrophils # 13.4 H (1.3-7.7) k/uL Lymphocytes # 1.5 (1.0-4.8) k/uL Monocytes # 0.4 (0-1.0) k/uL Eosinophils # 0.1 (0-0.7) k/uL Basophils # 0.0 (0-0.2) k/uL Sodium 140 (137-145) mmol/L Potassium 3.7 (3.5-5.1) mmol/L Chloride 107 (98-107) mmol/L Carbon Dioxide 21 L (22-30) mmol/L Anion Gap 12 mmol/L BUN 10 (7-17) mg/dL Creatinine 0.68 (0.52-1.04) mg/dL Est GFR (CKD-EPI)AfAm >90 (>60 ml/min/1.73 sqM) Est GFR (CKD-EPI)NonAf >90 (>60 ml/min/1.73 sqM) Glucose 96 (74-99) mg/dL Calcium 9.3 (8.4-10.2) mg/dL Total Bilirubin 0.8 (0.2-1.3) mg/dL AST 22 (14-36) U/L ALT 14 (4-34) U/L Alkaline Phosphatase 61 (38-126) U/L Total Protein 7.5 (6.3-8.2) g/dL Albumin 4.7 (3.5-5.0) g/dL HCG, Quant 787.4 mIU/mL Urine Color Yellow Urine Appearance Cloudy H (Clear) Urine pH 6.0 (5.0-8.0) Ur Specific [place] 1.033 (1.001-1.035) Urine Protein 1+ H (Negative) Urine Glucose (UA) Negative (Negative) Urine Ketones 4+ H (Negative) Urine Blood Negative (Negative) Urine Nitrite Negative (Negative) Urine Bilirubin Negative (Negative) Urine Urobilinogen 2.0 (<2.0) mg/dL Ur Leukocyte Esterase Moderate H (Negative) Urine RBC 6 H (0-5) /hpf Urine WBC 24 H (0-5) /hpf Ur Squamous Epith Cells 30 H (0-4) /hpf Urine Mucus Many H (None) /hpf Disposition Clinical Impression: Asymptomatic bacteriuria during , Nausea and vomiting during Disposition: HOME SELF-CARE Condition: Stable Instructions (If sedation given, give patient instructions): Nausea and Vomiting in (ED) Additional Instructions: Please return to the Emergency Department if symptoms worsen or any other concerns. Continue with already prescribed Reglan. Follow up with [employer]OR. Take antibiotic as prescribed. Prescriptions: Cephalexin [Keflex] 500 mg PO BID 3 Days #6 cap Is patient prescribed a controlled substance at d/c from ED?: No Referrals: None,Stated [Primary Care Provider] - 1-2 days Liz Dubon DO [Doctor of Osteopathic Medicine] - 1-2 days
[2020-04-25 12:41] LABS: ALT 14 U/L (4-34); AST 22 U/L (14-36); African American GFR (CKD) >90 (>60 ml/min/1.73 sqM); Albumin 4.7 g/dL (3.5-5.0); Alkaline Phosphatase 61 U/L (38-126); Anion Gap 12 mmol/L; Blood Urea Nitrogen 10 mg/dL (7-17); Calcium 9.3 mg/dL (8.4-10.2); Carbon Dioxide 21 mmol/L (22-30); Chloride 107 mmol/L (98-107); Glucose 96 mg/dL (74-99); Non-African American GFR(CKD) >90 (>60 ml/min/1.73 sqM); Potassium 3.7 mmol/L (3.5-5.1); Sodium 140 mmol/L (137-145); Total Bilirubin 0.8 mg/dL (0.2-1.3); Total Protein 7.5 g/dL (6.3-8.2)
[2020-04-25 12:57] LABS: HCG,Quantitative Serum 787.4 mIU/mL
[2020-04-25 13:26] LABS: Appearance,Urine Cloudy (Clear); Bilirubin,Urine Negative (Negative); Blood,Urine Negative (Negative); Color,Urine Yellow; Glucose,Urine (UA) Negative (Negative); Ketones,Urine 4+ (Negative); Leukocyte Esterase,Urine Moderate (Negative); Mucus,Urine Many /hpf; Nitrite,Urine Negative (Negative); Protein,Urine 1+ (Negative); RBC,Urine 6 /hpf (0-5); Specific Gravity,Urine 1.033 (1.001-1.035); Squamous Epithelial Cell,Urine 30 /hpf (0-4); WBC,Urine 24 /hpf (0-5)
[2020-04-25 14:06] VITALS: BP 112/76; PULSE 62
== END 2020-04-25 14:06 | disposition home or self-care (01) ==
LOC: EC 11:38
DX: O99.89 Other specified diseases and conditions complicating pregnancy, childbirth and the puerperium (principal); R82.71 Bacteriuria; R78.81 Bacteremia; O21.0 Mild hyperemesis gravidarum; Z88.0 Allergy status to penicillin; Z3A.01 Less than 8 weeks gestation of pregnancy; Z90.49 Acquired absence of other specified parts of digestive tract
CPT/HCPCS: 36415; 80053; 85025; 81001; 84702; 87086; 99284; 96374; 96361 ×2; J2765

== ENCOUNTER → 2020-05-19 | Outpatient (CLI) | payer OTHER ==
--- NOTE | 2020-05-19 23:39 | US ---
EXAMINATION TYPE: Ultrasound OB <= 14 weeks transvaginal DATE OF EXAM: 05/19/2020 4:02 PM COMPARISON: NONE CLINICAL HISTORY: 29-year-old female [id number] Confirm Dates. EXAM PERFORMED: Transvaginal (TV) and Transabdominal (TA) FINDINGS: Clinical Therapist notes: Patient stopped abdominal portion of test due to inability to hold her bladder. EXAM MEASUREMENTS: GESTATIONAL AGE / DATING Physician Established: Not yet established Dates by LMP: (8 weeks/0 days) EDC: 12/30/19 Dates by First Scan: No previous dates Dates by Current Scan for: ( 7 weeks/5 days) EDC: 01/01/20 MATERNAL ANATOMY Uterus: 10.7 x 5.1 x 5.2cm Right Ovary: 3.0 x 2.3 x 1.7cm Left Ovary: Left ovary not seen transvaginally, and the patient stopped the transabdominal exam due t o inability to hold urine . A single measurement of 1.9 cm was obtained. Post CDS / Adnexa: wnl Presence of subchorionic bleed: 0.9 x 0.2 x 0.5 inferiorly. GESTATION / SURVEY CRL: 1.3cm (7 weeks/5 days) Yolk Sac (normal less than 6mm): 0.3cm Heart Rate: 152 bpm Rhythm: Normal IUP: Viable IUP Date of LMP: 03/24/20 Beta HcG (if available): Not available at this time IMPRESSION: 1. Single live intrauterine with estimated gestational age of 8 weeks 0 days by LMP. Curren t ultrasound biometry is slightly smaller but concordant at 7 weeks 5 days. 2. Small 9 mm inferior perigestational bleed. 3. Complete survey recommended at 18-20 weeks.
== END | disposition home or self-care (01) ==
LOC: RADUSWWP 15:35
PROVIDERS: ATTEND Obstetrics & Gynecology
DX: O20.8 Other hemorrhage in early pregnancy (principal); Z3A.01 Less than 8 weeks gestation of pregnancy
CPT/HCPCS: 76801; 76817

== ENCOUNTER 2020-07-17 15:52 | Emergency (ER) | payer OTHER ==
--- NOTE | 2020-07-17 17:05 | US ---
EXAMINATION TYPE: US OB >= 14 wk fetus DATE OF EXAM: 07/17/2020 COMPARISON: 05/19/2020 CLINICAL HISTORY: fall patient fell yesterday and landed on her back TECHNIQUE: Transabdominal (TA) GESTATIONAL AGE / DATING Physician Established: (16 weeks/3 days) EDC: 12/29/20 Dates by LMP: (16 weeks/3 days) EDC: 12/29/20 Dates by First Scan: (16 weeks/1 days) EDC: 12/31/20 Dates by Current Scan: (16 weeks/5 days) EDC: 12/27/20 SURVEY IUP: Single PLACENTA: Posterior PREVIA: Low Lying JOSE: 9.5 cm Normal CERVICAL LENGTH (transabdominal: norm > 3.0cm): 4.4 cm BIOMETRY PRESENTATION: Vertex LIE: Transverse with head maternal LT BPD: 3.4 cm 16 weeks / 3 days HC: 12.9 cm 16 weeks / 4 days AC: 10.6 cm 16 weeks / 4 days FL: 2.3 cm 17 weeks / 0 days ESTIMATED WEIGHT IN GRAMS: 166 grams ESTIMATED WEIGHT IN LBS/OZ: 0 lbs. 6 oz. WEIGHT PERCENTAGE BASED ON ESTABLISHED DATES: 61% HC/AC: 1.22 Normal FL/AC: 22% Normal HEART RATE: 142 bpm RHYTHM: Normal IMPRESSION: There is satisfactory growth compared to old exam. No complicating process seen.
[2020-07-17] MEDS ORDERED: Rhogam IMMUNE GLOBULIN 1,500 UNIT/1 ML IM ONE (17:10)
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
[2020-07-17 18:03] LABS: Appearance,Urine Cloudy (Clear); Bilirubin,Urine Negative (Negative); Blood,Urine Negative (Negative); Calcium Oxalate Crystals,Urine Few /hpf; Color,Urine Yellow; Glucose,Urine (UA) Negative (Negative); Ketones,Urine Negative (Negative); Leukocyte Esterase,Urine Moderate (Negative); Mucus,Urine Occasional /hpf; Nitrite,Urine Negative (Negative); Protein,Urine Negative (Negative); Specific Gravity,Urine 1.025 (1.001-1.035); Squamous Epithelial Cell,Urine 4 /hpf (0-4); Urobilinogen,Urine <2.0 mg/dL (<2.0); WBC,Urine 3 /hpf (0-5)
[2020-07-17 18:52] VITALS: BP 137/74; PULSE 65; RESP 16; TEMP 98
== END 2020-07-17 18:39 | disposition home or self-care (01) ==
LOC: EC 15:52
DX: O9A.212 Injury, poisoning and certain other consequences of external causes complicating pregnancy, second trimester (principal); R10.9 Unspecified abdominal pain; Z88.0 Allergy status to penicillin; Z87.891 Personal history of nicotine dependence; Z90.49 Acquired absence of other specified parts of digestive tract; Z90.89 Acquired absence of other organs; Z3A.16 16 weeks gestation of pregnancy; W18.30XA Fall on same level, unspecified, initial encounter
CPT/HCPCS: 86900; 86901; 86850; 81001; 76805; 99284; 96372; J2791

== ENCOUNTER 2020-12-23 06:00 | Inpatient (IN) | payer OTHER ==
--- NOTE | 2020-12-22 19:43 | P.HPOB ---
History of Present Illness H&P Date: 12/22/20 Chief Complaint: Induction of labor This is a 30 y.o. female, 3, para 1, with an estimated date of confinement of 12/29/2020, estimated gestational age of 39-1/7 weeks, who presents for induction of labor. She is having irregular contractions and pressure. course has been uncomplicated. labs: Hepatitis B surface antigen-neg RPR-NR Rubella-immune Blood type-A neg Antibody screen-neg, Rhogam given at 28 weeks Hemoglobin -13.7 Glucose-100 1 hr. GTT-99 Group B streptococcus-neg OB Hx: . History of 1 vaginal delivery at term. History of 1 miscarriage. [employer] Hx: No hx STDs. Social Hx: . Review of Systems Constitutional: Denies chills, Denies fever Eyes: denies blurred vision, denies pain Ears, nose, mouth and throat: Denies headache, Denies sore throat Cardiovascular: Denies chest pain, Denies shortness of breath Respiratory: Denies cough Gastrointestinal: Reports abdominal pain (irregular contractions) Genitourinary: Reports pelvic pain, Reports Musculoskeletal: Reports low back pain Integumentary: Denies pruritus, Denies rash Neurological: Denies numbness, Denies weakness Psychiatric: Denies anxiety, Denies depression Past Medical History Past Medical History: No Reported History History of Any Multi-Drug Resistant Organisms: None Reported Past Surgical History: Adenoidectomy, Cholecystectomy Past Anesthesia/Blood Transfusion Reactions: No Reported Reaction Past Psychological History: No Psychological Hx Reported Smoking Status: Former smoker Past Alcohol Use History: None Reported Past Drug Use History: None Reported - Past Family History Father Family Medical History: Diabetes Mellitus Medications and Allergies Home Medications Medication Instructions Recorded Confirmed Type Pnv No.95/Ferrous Fum/Folic AC 1 tab PO DAILY 08/01/18 04/25/20 History [ Multivitamin Tablet] Allergies Allergy/AdvReac Type Severity Reaction Status Date / Time Penicillins AdvReac Rash/Hives Verified 07/17/20 15:59 Exam Osteopathic Statement: *. No significant issues noted on an osteopathic structural exam other than those noted in the History and Physical/Consult. HEENT: within normal limits Heart: regular rate and rhythm Lungs: clear to auscultation bilaterally Abdomen: Cervix: 3.5-4 cm/70%/-2 heart tones: 140's by doppler Extremities: neg. Elizabeth's Assessment and Plan (1) 39 weeks gestation of Status: Acute Code(s): Z3A.39 - 39 WEEKS GESTATION OF SNOMED Code(s): 52373534 Plan: Proceed with oxytocin induction of labor. Epidural anesthesia if desired. Expectant management.
[2020-12-23] MEDS ORDERED: LIDOCAINE 0.5% (PF) 5 MG/ML (50 ML SDV) SQ PRN (06:10)
[2020-12-23] MEDS ORDERED: METHYLERGONOVINE 0.2 MG/ML 1 ML AMP IM PRN (06:10)
[2020-12-23] MEDS ORDERED: LACTATED RINGERS 1,000 ML IV SCH (06:10)
[2020-12-23] MEDS ORDERED: TERBUTALINE 1 MG/ML VIAL SQ PRN (06:10)
[2020-12-23] MEDS ORDERED: LIDOCAINE 1% (10MG/ML) FOR IV START INTRADERMA PRN (06:10)
[2020-12-23] MEDS ORDERED: CARBOPROST TROMETHAMINE 250 MCG/ML 1 ML AMP IM PRN (06:10)
[2020-12-23] MEDS ORDERED: OXYTOCIN 10 UNIT/ML 1 ML VIAL IM PRN (06:10)
[2020-12-23] MEDS ORDERED: OXYTOCIN 30 UNITS/500 ML NS 30 UNIT in SALINE 1 500ML.BAG IV SCH ×2 (06:10→13:50)
[2020-12-23 07:44] LABS: Basophils % (A) 0 %; Eosinophils # (A) 0.1 k/uL (0-0.7); Eosinophils % (A) 1 %; HGB 10.5 gm/dL (11.4-16.0); Lymphocytes # (A) 2.6 k/uL (1.0-4.8); Lymphocytes % (A) 25 %; MCH 27.8 pg (25.0-35.0); MCHC 32.9 g/dL (31.0-37.0); MCV 84.5 fL (80.0-100.0); Mean Platelet Volume 8.6; Monocytes # (A) 0.5 k/uL (0-1.0); Monocytes % (A) 5 %; Neutrophils # (A) 7.1 k/uL (1.3-7.7); Neutrophils % (A) 69 %; Platelet Count 218 k/uL (150-450); Poikilocytosis Slight; RBC 3.79 m/uL (3.80-5.40); RDW 14.2 % (11.5-15.5); WBC 10.3 k/uL (3.8-10.6)
--- NOTE | 2020-12-23 13:36 | P.PROBDLV ---
Vaginal Delivery Note - . Vaginal Delivery Note: The patient progressed to complete dilation after oxytocin induction of labor and artificial rupture of membranes with clear fluid noted. Once reaching complete, she began pushing. 's head came to a crown. With one further push, the 's head delivered across the perineum followed by the anterior shoulder. Nose and mouth are bulb suctioned at the perineum. With one further push, the remainder the infant is easily delivered and placed on mother's abdom en. Cord is clamped and cut and infant is taken to warmer for evaluation. A viable male infant is noted with scores of 9 at 1 minute and 9 at 5 minutes and infant weight of 8 lbs. 9 oz. Placenta delivered shortly thereafter, intact, with a three-vessel cord. Inspection of the perineum revealed no perineal lacerations. Uterus contracted well after oxytocin is given IM since her IV came out during pushing. A gloved hand was placed within the uterine cavity and no further membranes are palpated. A few clots are removed. Estimated blood loss is approximately 200 mL's. Both mother and are in stable condition.
[2020-12-23] MEDS ORDERED: diphenhydrAMINE 25 MG CAP PO PRN (13:50)
[2020-12-23] MEDS ORDERED: ZOLPIDEM 5 MG TAB PO PRN (13:50)
[2020-12-23] MEDS ORDERED: SIMETHICONE 80 MG CHEWABLE PO PRN (13:50)
[2020-12-23] MEDS ORDERED: BENZOCAINE/MENTHOL SPRAY 1 GM/SPRAY AEROSOL TOPICAL PRN (13:50)
[2020-12-23] MEDS ORDERED: diphenhydrAMINE 50 MG/ML 1 ML VIAL IVP PRN ×2 (13:50)
[2020-12-23] MEDS ORDERED: LANOLIN CREAM 5 GM TUBE TOPICAL PRN (13:50)
[2020-12-23] MEDS ORDERED: HYDROCORTISONE 2.5% RECTAL CREAM 30 GM TUBE RECTAL PRN (13:50)
[2020-12-23] MEDS ORDERED: ACETAMINOPHEN TAB 325 MG TAB PO PRN (13:50)
[2020-12-23] MEDS ORDERED: diphenhydrAMINE 50 MG CAP PO PRN (13:50)
[2020-12-23] MEDS: IBUPROFEN 600 MG TAB PO SCH ×2 (14:01→22:12)
[2020-12-23] MEDS ORDERED: MEASLES-MUMPS-RUBELLA VACC/PF 12,500 UNIT/0.5 ML VIAL SQ ONE (20:50)
[2020-12-23] MEDS ORDERED: Rhogam IMMUNE GLOBULIN 1,500 UNIT/1 ML IM ONE (21:12)
[2020-12-23] MEDS: SENNOSIDES-DOCUSATE SODIUM 1 EACH TAB PO SCH (22:12)
[2020-12-24 01:23] VITALS: TEMP 98.1
[2020-12-24] MEDS: IBUPROFEN 600 MG TAB PO SCH ×3 (04:10→14:00)
[2020-12-24 06:40] LABS: Basophils % (A) 0 %; Eosinophils # (A) 0.1 k/uL (0-0.7); Eosinophils % (A) 1 %; HCT 28.5 % (34.0-46.0); HGB 9.2 gm/dL (11.4-16.0); Hypochromasia Slight; Lymphocytes # (A) 2.9 k/uL (1.0-4.8); Lymphocytes % (A) 21 %; MCH 27.9 pg (25.0-35.0); MCHC 32.3 g/dL (31.0-37.0); MCV 86.3 fL (80.0-100.0); Mean Platelet Volume 8.2; Monocytes # (A) 0.7 k/uL (0-1.0); Monocytes % (A) 5 %; Neutrophils # (A) 9.4 k/uL (1.3-7.7); Neutrophils % (A) 71 %; Platelet Count 190 k/uL (150-450); RBC 3.31 m/uL (3.80-5.40); RDW 14.3 % (11.5-15.5); WBC 13.3 k/uL (3.8-10.6)
[2020-12-24] MEDS: SENNOSIDES-DOCUSATE SODIUM 1 EACH TAB PO SCH (08:20)
[2020-12-24 09:15] VITALS: BP 96/59; PULSE 77; RESP 18
--- NOTE | 2020-12-24 13:05 | P.DS ---
Providers Date of admission: 12/23/20 06:00 Expected date of discharge: 12/24/20 Attending physician: Liz Dubon Primary care physician: Stated None - Discharge Diagnosis(es) (1) 39 weeks gestation of Current Visit: No Status: Acute Hospital Course: This is a 30-year-old female 3 para 1 at 39-0/7 weeks who presented for induction of labor. She underwent oxytocin induction of labor and delivered vaginally a viable male on 12/23/2020 with scores of 9 at 1 minute and 9 at 5 minutes and infant weight of 8 lbs. 9 oz. Her course has been uncomplicated. Lochia is decreasing. She is breast-feeding. Vital signs are stable. Abdomen is soft with fundus firm and nontender. Extremities show negative Homans. Impression is status post vaginal delivery day #1. Plan is to discharge home today. Routine instructions are given. She will be given a prescription for ibuprofen. She has a breast pump at home. She is advised to call the office if she has any further questions or concerns prior to her appointment time. She is advised to follow up in the office in 6 weeks for a check. Procedures: Oxytocin induction of labor Spontaneous vaginal delivery of a viable tamara infant on 12/23/2020 Patient Condition at Discharge: Stable Plan - Discharge Summary New Discharge Prescriptions: No Action Pnv No.95/Ferrous Fum/Folic AC [ Multivitamin Tablet] 1 tab PO DAILY Discharge Medication List Pnv No.95/Ferrous Fum/Folic AC [ Multivitamin Tablet] 1 tab PO DAILY 08/01/18 [History] Follow up Appointment(s)/Referral(s): Liz Dubon DO [Doctor of Osteopathic Medicine] - 6 Weeks Activity/Diet/Wound Care/Special Instructions: Instructions 1. Do not begin any exercise program for 3 weeks. 2. Do not resume sexual relations for 3 weeks or longer if uncomfortable. 3. You may take tub baths or showers at any time. 4. You may use tampons if desired after 3 weeks. 5. Keep the area of episiotomy (stitches) clean and dry. 6. If you are not nursing, wear a good fitting, supportive bra during the day and limit fluid intake for at least 1 week to prevent breast engorgement. 7. Call the office, [phone], within the next week to make appointment for your 6 week checkup if it has not already been made. 8. Report any of the following occurrences to the doctor promptly: a. Heavy, excessive bleeding b. Chills, fever c. Burning or frequency of urination d. Pain or redness and breasts if nursing e. Increasing pain or swelling in episiotomy (stitches). In addition to the above instructions, the following additional should be followed: 1. No heavy lifting or straining (exercising) until after 6 week checkup. 2. Keep abdominal incision clean and dry: You may wear a dressing if more comfortable. 3. Make office appointment for 10 days after going home or as instructed by her doctor. Discharge Disposition: HOME SELF-CARE
== END 2020-12-24 15:00 | disposition home or self-care (01) | DRG 807 ==
LOC: 4FBP 06:00
PROVIDERS: ADMIT Obstetrics & Gynecology; ATTEND Obstetrics & Gynecology
PROC: 10E0XZZ Delivery of Products of Conception, External Approach (ICD-10-PCS; principal; 2020-12-23)
PROC: 3E033VJ Introduction of Other Hormone into Peripheral Vein, Percutaneous Approach (ICD-10-PCS; principal; 2020-12-23)
PROC: 10907ZC Drainage of Amniotic Fluid, Therapeutic from Products of Conception, Via Natural or Artificial Opening (ICD-10-PCS; principal; 2020-12-23)
PROC: 3E0234Z Introduction of Serum, Toxoid and Vaccine into Muscle, Percutaneous Approach (ICD-10-PCS; 2020-12-23)
PROC: 3E0134Z Introduction of Serum, Toxoid and Vaccine into Subcutaneous Tissue, Percutaneous Approach (ICD-10-PCS; 2020-12-23)
DX: O26.893 Other specified pregnancy related conditions, third trimester (principal); Z37.0 Single live birth; Z3A.39 39 weeks gestation of pregnancy; Z23 Encounter for immunization; Z67.11 Type A blood, Rh negative; Z79.899 Other long term (current) drug therapy; Z90.49 Acquired absence of other specified parts of digestive tract; Z90.89 Acquired absence of other organs; Z98.890 Other specified postprocedural states; Z87.19 Personal history of other diseases of the digestive system; Z87.891 Personal history of nicotine dependence; Z88.0 Allergy status to penicillin; Z83.3 Family history of diabetes mellitus
CPT/HCPCS: 85025; 85461; 86850; 86900; 86901

== ENCOUNTER 2022-07-10 09:30 | Emergency (ER) | payer OTHER ==
--- NOTE | 2022-07-10 10:21 | XR ---
EXAMINATION TYPE: XR chest 2V DATE OF EXAM: 07/10/2022 COMPARISON: NONE TECHNIQUE: PA and lateral views submitted. HISTORY: Shortness of breath FINDINGS: The lungs are clear and there is no pneumothorax, pleural effusion, or focal pneumonia. Heart size n ormal. No overt failure. Surgical clips in the gallbladder fossa. Mild hyperinflation could be associ ated with asthma correlate clinically. IMPRESSION: 1. No acute process.
--- NOTE | 2022-07-10 10:41 | ED ---
General Adult HPI - General Chief complaint: Upper Respiratory Infection Stated complaint: hot flashes, dizziness Time Seen by Provider: 07/10/22 09:38 Source: patient, RN notes reviewed Mode of arrival: ambulatory Limitations: no limitations - History of Present Illness Initial comments: 31-year-old female presents emergency Department chief complaint of congestion, cough, shortness breath dizziness. Patient states that symptoms started last few days. Patient states for breath or productive cough. Patient had increased nasal congestion, sore throat. Patient states she felt lightheaded from coughing did have 1 episode of posttussive. Patient denies any abdominal pain denies chance patient states that her child was sick but has improved. Patient states symptoms seemed worsening. - Related Data Home Medications Medication Instructions Recorded Confirmed Pnv No.95/Ferrous Fum/Folic AC 1 tab PO DAILY 08/01/18 12/23/20 [ Multivitamin Tablet] Previous Rx's Medication Instructions Recorded Azithromycin [Zithromax Z Pack] 0 tab PO DIRECTED #6 tab 07/10/22 predniSONE 50 mg PO DAILY #5 tab 07/10/22 Allergies Allergy/AdvReac Type Severity Reaction Status Date / Time Penicillins AdvReac Rash/Hives Verified 07/10/22 09:35 Review of Systems ROS Statement: Those systems with pertinent positive or pertinent negative responses have been documented in the HPI. ROS Other: All systems not noted in ROS Statement are negative. Past Medical History Past Medical History: No Reported History History of Any Multi-Drug Resistant Organisms: None Reported Past Surgical History: Adenoidectomy, Cholecystectomy Past Anesthesia/Blood Transfusion Reactions: No Reported Reaction Past Psychological History: No Psychological Hx Reported Smoking Status: Vaper Past Alcohol Use History: None Reported Past Drug Use History: Marijuana - Past Family History Father Family Medical History: Diabetes Mellitus General Exam Limitations: no limitations General appearance: alert, in no apparent distress Head exam: Present: atraumatic, normocephalic, normal inspection Eye exam: Present: normal appearance, PERRL, EOMI. Absent: scleral icterus, conjunctival injection, periorbital swelling ENT exam: Present: normal exam, normal oropharynx, mucous membranes moist Neck exam: Present: normal inspection, full ROM. Absent: tenderness, meningismus, lymphadenopathy Respiratory exam: Present: wheezes. Absent: normal lung sounds bilaterally, respiratory distress, rales, rhonchi, stridor Cardiovascular Exam: Present: regular rate, normal rhythm, normal heart sounds. Absent: systolic murmur, diastolic murmur, rubs, gallop, clicks Neurological exam: Present: alert Course Vital Signs 07/10/22 09:31 Temperature 97.5 F L Pulse Rate 82 Respiratory 16 Rate Blood Pressure 114/69 O2 Sat by Pulse 100 Oximetry Medical Decision Making - Medical Decision Making : 19 T negative. Chest x-ray shows no focal pneumonia, mild changes consistent with bronchitis. Patient is currently stable. Patient we discharged in stable condition with temperature discussed. - Lab Data Lab Results 07/10/22 Range/Units 10:08 Coronavirus (PCR) Not Detected (Not Detectd) Disposition Clinical Impression: Acute bronchitis Disposition: HOME SELF-CARE Condition: Stable Instructions (If sedation given, give patient instructions): Upper Respiratory Infection (ED) Additional Instructions: Please return to the Emergency Department if symptoms worsen or any other concerns. Prescriptions: predniSONE 50 mg PO DAILY #5 tab Azithromycin [Zithromax Z Pack] 0 tab PO DIRECTED #6 tab Is patient prescribed a controlled substance at d/c from ED?: No Referrals: None,Stated [Primary Care Provider] - 1-2 days Time of Disposition: 10:41
[2022-07-10 11:23] VITALS: BP 112/67; PULSE 63; RESP 18; TEMP 97.7
== END 2022-07-10 11:20 | disposition home or self-care (01) ==
LOC: EC 09:30
DX: J40 Bronchitis, not specified as acute or chronic (principal); F12.90 Cannabis use, unspecified, uncomplicated; F17.290 Nicotine dependence, other tobacco product, uncomplicated; Z88.0 Allergy status to penicillin; Z20.822 Contact with and (suspected) exposure to COVID-19
CPT/HCPCS: 71046; 87635; 99284; 99285

== ENCOUNTER → 2022-08-31 | Outpatient (CLI) | payer OTHER ==
--- NOTE | 2022-08-31 15:39 | MR ---
EXAMINATION TYPE: MR brain wo/w con DATE OF EXAM: 08/31/2022 COMPARISON: None HISTORY: Frequent headaches, dizziness. TECHNIQUE: Multiplanar, multisequence images of the brain and brainstem is performed without and with IV contras t, utilizing 6.5 mL intravenous Gadavist . FINDINGS: Diffusion weighted images demonstrate no evidence of a recent infarct or other diffusion ab normality. There is no extra-axial fluid collection or significant white matter signal abnormality. The ventricular system and cisternal spaces are normal in size and appearance. The brain volume is age appropriate. Inferior displacement of the cerebellar tonsils through the foramen of magnum approx imately 7 mm. No syrinx identified. Midline structures demonstrate normal morphology. Post contrast images demonstrate no abnormal enhanc ement. The dural venous sinuses appear patent. The visualized sinuses are clear and the globes are in tact. IMPRESSION: 1. No evidence for acute ischemia or abnormal contrast enhancement. 2. Inferior displacement of cerebellar tonsils through the foramen magnum approximately 7 mm without evidence of syrinx consistent with incidental Chiari I malformation.
== END | disposition home or self-care (01) ==
LOC: RADMRIMAIN 14:48
PROVIDERS: ATTEND Ophthalmology
DX: G93.9 Disorder of brain, unspecified (principal); G44.219 Episodic tension-type headache, not intractable
CPT/HCPCS: 70553; A9585